=== PATIENT | female | born 1990 | race Caucasian/White ===

== ENCOUNTER 2018-07-26 21:02 | Emergency (ER) | payer MEDICAID ==
[2018-07-26] MEDS: ACETAMINOPHEN 500 MG TAB PO (22:22)
== END 2018-07-26 23:59 | disposition home or self-care (01) ==
LOC: FTE 21:02
DX: S02.2XXA Fracture of nasal bones, initial encounter for closed fracture (principal); W22.8XXA Striking against or struck by other objects, initial encounter; Y92.322 Soccer field as the place of occurrence of the external cause
CPT/HCPCS: 70160; 99283